=== PATIENT | female | born 1985 | race African-American/Black ===

== ENCOUNTER 2025-03-29 07:42 | Emergency (ER) | payer OTHER ==
[~2025-03-29] VITALS: Ht 162.6 cm; Wt 58.6 kg
[2025-03-29] MEDS: ONDANSETRON 4MG/2ML VIAL IV ONE (08:32)
[2025-03-29] MEDS: NS (Normal Saline) 0.9% 1,000 ML IV ONE (08:33)
[2025-03-29 09:13] LABS: BASO # 0.0 10^3/uL (0.0-0.2); BASO % 0.5 % (0.0-1.0); EOS # 0.0 10^3/uL (0.0-0.5); EOS % 0.4 % (0.0-3.0); LYMPH # 3.9 10^3/uL (1.5-5.0); LYMPH % 50.6 % (24.0-44.0); MONO # 0.4 10^3/uL (0.0-0.8); MONO % 5.4 % (2.0-8.0); NEUTROPHILS # 3.3 10^3/uL (1.5-8.5); NEUTROPHILS % 43.0 % (36.0-66.0); PLATELET COUNT, AUTOMATED 316 10^3/uL (150-450)
[2025-03-29 09:25] LABS: MAGNESIUM LEVEL 2.1 MG/DL (1.8-2.4)
[2025-03-29 09:27] LABS: HCG, SERUM QUALITATIVE NEGATIVE (NEGATIVE)
[2025-03-29 10:00] VITALS: BP 115/73; TEMP 98.3; O2SAT 100
== END 2025-03-29 10:00 | disposition home or self-care (01) ==
LOC: M ED 07:42
DX: R55 Syncope and collapse (principal)
CPT/HCPCS: 80047; 83735; 84703; 85025; 93005; 93041; 96361; 96374; 99284; J2405